=== PATIENT | female | born 1970 | race Two or more races ===

== ENCOUNTER 2024-11-07 11:19 | Inpatient (IN) | payer OTHER ==
[~2024-11-07] VITALS: Ht 160 cm; Wt 66.7 kg
[2024-11-07] MEDS ORDERED: 0.9 % SODIUM CHLORIDE 1,000 ML IV SCH (12:15)
[2024-11-07 12:43] LABS: HEMATOCRIT 43.3 % (36.0-45.00); HEMOGLOBIN 14.4 g/dL (12.0-15.00); MEAN CELL VOLUME 92.3 fL (80.00-100.00); MEAN CORPUSCULAR HEMOGLOBIN 30.7 pg (27.00-32.0); MEAN CORPUSCULAR HGB CONC 33.2 g/dl (32.0-36.0); PLATELET COUNT 327 K/uL (150-450); RED CELL DISTRIBUTION WIDTH 14.7 % (11.5-14.5)
[2024-11-07 13:07] LABS: ALBUMIN 2.9 gm/dL (3.4-5.0); BILIRUBIN TOTAL 5.92 mg/dL (0.3-1.2); CALCIUM 8.9 mg/dL (8.5-10.1); CREATININE SERUM 0.74 mg/dL (0.55-1.02); GFR 82.09; POTASSIUM 4.38 mEq/L (3.5-5.1); TOTAL PROTEIN 7.9 gm/dL (6.4-8.2)
[2024-11-07 13:12] LABS: PH,URINE 5.5 (5.0-8.0); URINE APPEARANCE Clear; URINE BILIRRUBIN Moderate (NEGATIVE); URINE BLOOD Negative; URINE COLOR Dark Yellow; URINE GLUCOSE Negative (NEGATIVE); URINE KETONE Negative (NEGATIVE); URINE LEUKOCYTE Trace; URINE NITRATE Negative; URINE PROTEIN 30 (NEGATIVE)
[2024-11-07 13:13] LABS: URINE BACTERIA 46.5 uL (0.0-1933); URINE EPITHELIAL CELLS 9.9 uL (0.0-38.8); URINE RBC 8.2 uL (0.0-20.8); URINE WBC 3.6 uL (0.0-23.2)
[2024-11-07 13:24] LABS: URINE CAST 0.29 uL (0.0-1.40)
[2024-11-07 19:24] LABS: INR 1.14; PARTIAL THROMBOPLASTIN TIME 27.5 SECONDS (22.0-34.0); PROTHROMBIN TIME 12.3 SECONDS (9.0-11.5)
[2024-11-07] MEDS ORDERED: PIPERACILLIN/TAZOBACTAM SODIUM 3.375 GM in DEXTROSE 5 % IN WATER 100 ML IV SCH (19:24)
[2024-11-07] MEDS ORDERED: FAMOTIDINE/PF 20 MG in 0.9 % SODIUM CHLORIDE 8 ML IV PUSH SCH (19:27)
[2024-11-07] MEDS ORDERED: MORPHINE SULFATE 4 MG/ML CARTRIDGE IV PRN (19:30)
[2024-11-07] MEDS ORDERED: ONDANSETRON HCL 4 MG in 0.9 % SODIUM CHLORIDE 50 ML IV PRN (19:30)
[2024-11-07 19:40] LABS: ALBUMIN 2.7 gm/dL (3.4-5.0); BILIRUBIN TOTAL 5.41 mg/dL (0.3-1.2); BILIRUBIN,CONJUGATED 4.4 mg/dL (0.0-0.2); BILIRUBIN,UNCONJUGATED 1.01 mg/dL (0.0-0.6); TOTAL PROTEIN 7.6 gm/dL (6.4-8.2)
[2024-11-07] MEDS ORDERED: PIPERACILLIN/TAZOBACTAM SODIUM 3.375 GM VIAL IV ONE (19:47)
[2024-11-07] MEDS ORDERED: FAMOTIDINE/PF 20 MG/2 ML VIAL ONE (19:47)
[2024-11-07 23:51] VITALS: BP 101/63; O2SAT 98
[2024-11-08 04:00] VITALS: BP 95/65
[2024-11-08 07:45] VITALS: BP 102/70; O2SAT 94
[2024-11-08 17:17] VITALS: BP 103/72; O2SAT 97
[2024-11-09 00:30] VITALS: BP 104/68
[2024-11-09 08:14] LABS: ALBUMIN 2.4 gm/dL (3.4-5.0); BILIRUBIN TOTAL 3.88 mg/dL (0.3-1.2); BILIRUBIN,CONJUGATED 2.67 mg/dL (0.0-0.2); BILIRUBIN,UNCONJUGATED 1.21 mg/dL (0.0-0.6); CALCIUM 8.2 mg/dL (8.5-10.1); CREATININE SERUM 0.72 mg/dL (0.55-1.02); GFR 84.73; MAGNESIUM 2.1 mg/dL (1.8-2.4); PHOSPHOROUS 4.4 mg/dL (2.5-4.9); POTASSIUM 4.92 mEq/L (3.5-5.1); TOTAL PROTEIN 6.4 gm/dL (6.4-8.2)
[2024-11-09 08:17] LABS: C-REACTIVE PROTEIN 2.47 MG/DL (0.00-0.29)
[2024-11-09 08:22] VITALS: BP 103/54
[2024-11-09 08:23] LABS: HEMATOCRIT 36.3 % (36.0-45.00); HEMOGLOBIN 12.1 g/dL (12.0-15.00); MEAN CELL VOLUME 93.5 fL (80.00-100.00); MEAN CORPUSCULAR HGB CONC 33.2 g/dl (32.0-36.0); RED BLOOD COUNT 3.89 M/uL (4.00-6.00); RED CELL DISTRIBUTION WIDTH 14.9 % (11.5-14.5)
[2024-11-09] MEDS ORDERED: ENOXAPARIN SODIUM 40 MG/0.4 ML SYRINGE SUBCUTANEO SCH (09:00)
[2024-11-09 09:28] LABS: PLATELET COUNT 303 K/uL (150-450)
== END 2024-11-09 12:10 | disposition left against medical advice (07) | DRG 947 ==
LOC: ER 11:21 → MEDJ 19:59
PROVIDERS: Emergency Medicine; General Practice; Student in an Organized Health Care Education/Training Program; ADMIT Internal Medicine; ATTEND Internal Medicine
PROC: BF35ZZZ Magnetic Resonance Imaging (MRI) of Liver (ICD-10-PCS; principal; 2024-11-07)
PROC: BW40ZZZ Ultrasonography of Abdomen (ICD-10-PCS; 2024-11-07)
DX: R74.01 Elevation of levels of liver transaminase levels (principal); K85.10 Biliary acute pancreatitis without necrosis or infection; R82.2 Biliuria; K80.50 Calculus of bile duct without cholangitis or cholecystitis without obstruction